=== PATIENT | female | born 1940 | race Asian ===

== ENCOUNTER 2019-01-05 02:07 | Inpatient (IN) | payer MEDICARE, BC, MEDICAID ==
[~2019-01-05] VITALS: Ht 149.9 cm; Wt 60.0 kg
[2019-01-05 04:40] LABS: CLARITY,URINE SLIGHTLY CLOUDY (Clear); COLOR,URINE YELLOW (Yellow); GLUCOSE, URINE NEGATIVE (Neg); KETONES,URINE NEGATIVE (Neg); LEUKOCYTE ESTERASE ,URINE MODERATE (Neg); NITRITES, URINE NEGATIVE (Neg); OCCULT BLOOD,URINE NEGATIVE (Neg); PH,URINE 6.5 (4.8-8.0); PROTEIN,URINE NEGATIVE (Neg); UROBILINOGEN,URINE 0.2 E.U/dL (0.2-1.0)
[2019-01-05 04:41] LABS: UA COLLECTION TYPE CLN CATCH MIDSTREAM
[2019-01-05 04:58] LABS: BACTERIA,URINE FEW /HPF (Neg); RBC,URINE 0-2 /HPF (0-2); WBC,URINE 0-4 /HPF (0-4)
[2019-01-05 04:59] LABS: MUCUS STRANDS NONE SEEN /LPF (Neg); SQUAMOUS EPITHELIAL CELL,UR FEW /LPF (FEW)
[2019-01-05] MEDS ORDERED: iohexol 300mg/ml 100ml inj. ONE (05:27)
[2019-01-05 05:30] LABS: PARTIAL THROMBOPLASTIN TIME 27 SECONDS (22-32)
[2019-01-05 05:33] LABS: ALANINE AMINOTRANSFERASE 30 U/L (12-78); ALBUMIN 4.1 G/DL (3.4-5.0); ALBUMIN/GLOBULIN RATIO 1.1 (1.1-1.5); ALKALINE PHOSPHATASE 82 IU/L (46-116); ANION GAP 15 (8-16); ASPARTATE AMINO TRANSFERASE 26 U/L (10-37); BILIRUBIN,TOTAL 0.6 MG/DL (0.1-1.0); BLOOD UREA NITROGEN 20 MG/DL (7-18); BUN/CREATININE RATIO 24.4 (6.6-38.0); CALCIUM 8.9 MG/DL (8.5-10.1); CHLORIDE 105 MMOL/L (99-107); CREATININE 0.82 MG/DL (0.40-0.90); GLUCOSE 94 MG/DL (70-104); SODIUM 140 MMOL/L (135-145); TOTAL CARBON DIOXIDE 20.3 MMOL/L (24-32); TOTAL PROTEIN 7.8 G/DL (6.4-8.2); eGFR 67 ML/MIN
[2019-01-05 05:39] LABS: POTASSIUM 2.9 MMOL/L (3.5-5.1)
[2019-01-05] MEDS ORDERED: magnesium 2GM in 50ml NS 50 ML IV ONE (05:40)
[2019-01-05] MEDS ORDERED: potassium 10mEq/100ml NS w/LIDOcaine (10mg/bag) IV ONE ×2 (05:40→07:35)
[2019-01-05 05:42] LABS: BASOPHILS % (AUTO) 0.9 % (0-1); EOSINOPHILS # (AUTO) 0.1 X10'3 (0-0.9); EOSINOPHILS % (AUTO) 2.2 % (0-6); HEMATOCRIT 39.6 % (35.0-45.0); HEMOGLOBIN 13.6 g/dl (12.0-16.0); LYMPHOCYTES # (AUTO) 1.5 X10'3 (1.1-4.8); LYMPHOCYTES % (AUTO) 28.5 % (21-51); MEAN CORPUSCULAR HEMOGLOBIN 32.8 PG (27.0-31.0); MEAN CORPUSCULAR HGB CONC 34.2 g/dL (33.0-36.5); MEAN CORPUSCULAR VOLUME 95.8 FL (78-98); MEAN PLATELET VOLUME 9.2 FL (7.4-10.4); MONOCYTES # (AUTO) 0.4 X10'3 (0-0.9); MONOCYTES % (AUTO) 7.7 % (2-12); NEUTROPHILS # (AUTO) 3.2 X10'3 (1.8-7.7); NEUTROPHILS % (AUTO) 60.7 % (42-75); PLATELET COUNT 151 X10'3 (140-440); RED BLOOD COUNT 4.13 X10'6 (4.20-5.60); WHITE BLOOD COUNT 5.3 X10'3 (4.5-11.0)
[2019-01-05] MEDS ORDERED: potassium Cl 10 mEq/100mL bag IV ONE ×2 (05:45→07:40)
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
[2019-01-05] MEDS ORDERED: CefTRIAXone 2gm/D5W 50ml 50 ML IV ONE (06:30)
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
--- NOTE | 2019-01-05 07:20 | NUR ---
Daughter Roxanna's phone number [phone]
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
--- NOTE | 2019-01-05 07:46 | NUR ---
Patient admitted to [facility] last week. Attempting to get records.
--- NOTE | 2019-01-05 08:01 | NUR ---
DR MARVIN WITH PT AND PT'S SISTER AT BEDSIDE
[2019-01-05] MEDS ORDERED: acetaminophen 325mg tablet PO PRN (08:10)
[2019-01-05] MEDS ORDERED: magnesium 4gm in 100ml NS 100 ML IV PRN (08:10)
[2019-01-05] MEDS ORDERED: magnesium 2GM in 50ml NS 50 ML IV PRN (08:10)
[2019-01-05] MEDS ORDERED: potassium CL 10mEq/100ml bag 100 ML IV PRN ×2 (08:10)
[2019-01-05] MEDS ORDERED: magnesium hydroxide 30ml (MOM) UD suspension PO PRN (08:10)
[2019-01-05] MEDS ORDERED: ondansetron/PF 4mg/2ml inj IV PRN (08:10)
[2019-01-05] MEDS ORDERED: mag hydrox/Alum hydrox/simeth 30ml oral suspension PO PRN (08:10)
[2019-01-05] MEDS ORDERED: morphine 2 MG/ML inj. syringe IV PRN (08:10)
[2019-01-05] MEDS ORDERED: potassium Cl 20 mEq SR tablet PO PRN (08:10)
[2019-01-05] MEDS ORDERED: magnesium Cl slow-release 64mg tablet PO PRN (08:10)
[2019-01-05] MEDS ORDERED: LORazepam 2 mg/ml vial IV PRN (08:15)
[2019-01-05] MEDS ORDERED: LORazepam 0.5 MG tablet PO PRN (08:15)
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
[2019-01-05] MEDS: normal saline 1000ml 1,000 ML IV SCH ×2 (12:22→20:48)
[2019-01-05] MEDS: CefTRIAXone 2gm/D5W 50ml 50 ML IV SCH (12:35)
[2019-01-05] MEDS: cloNIDine 0.1 mg tablet PO SCH ×2 (12:59→20:48)
[2019-01-05] MEDS: HYDROcodone/acetaminophen 5mg/325mg tablet PO PRN (13:05)
[2019-01-05] MEDS ORDERED: NO HOME MEDS (13:28)
--- NOTE | 2019-01-05 13:33 | NUR ---
Pt assisted to bathroom with IV pole.
--- NOTE | 2019-01-05 15:33 | NUR ---
Pt is to be transferred to a medical floor at some point.
[2019-01-05 15:34] LABS: POTASSIUM 3.4 MMOL/L (3.5-5.1); TROPONIN I < 0.04 NG/ML (0.0-0.05)
--- NOTE | 2019-01-05 16:50 | NUR ---
Pt accidently dislodged her IV.
[2019-01-05] MEDS: potassium Cl 20 mEq SR tablet PO PRN ×2 (17:45→21:38)
--- NOTE | 2019-01-05 18:10 | NUR ---
Started new IV Right AC 22 gauge, IV fluids restarted.
--- NOTE | 2019-01-05 18:11 | NUR ---
Daughter Roxanna phone number [phone]
--- NOTE | 2019-01-05 18:28 | NUR ---
Pt has order for a sitter, charge nurse notified. Plan is for pt to be transferred to a medical floor this evening possibly ortho.
[2019-01-05 19:15] VITALS: BP 167/80
[2019-01-05] MEDS: heparin, porcine 5000 units/ml vial SQ SCH (20:00)
[2019-01-05 22:00] VITALS: BP 119/63
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
[2019-01-06] MEDS ORDERED: LORazepam 2 mg/ml vial IV PRN (01:25)
[2019-01-06] MEDS ORDERED: haloperidol lactate 5mg/ml inj IM PRN (01:25)
--- NOTE | 2019-01-06 02:26 | NUR ---
AT APPROX 0045, PATIENT ATTEMPTED TO LEAVE THE FLOOR AND REFUSED USE OF PIPE AND TANK FABRICATOR VIA PHONE TO AID WITH COMMUNICATING WITH PATIENT. BECAME VERY COMBATIVE, HITTING AND KICKING AT STAFF. OBTAINED ORDERED TO PLACE PATIENT INTO SOFT RESTRAINTS AND CHANGED ATIVAN ORDER TO .5MG Q4HRS AND ACQUIRED AN ORDER FOR HALDOL .5MG IF ATIVAN NOT EFFECTIVE. PATIENT CONTINUES TO BE MONITORED FREQUENTLY AND SITTER REMAINS AT THE BEDSIDE. Addendum: 01/06/19 at 0228 by Berta Reynolds RN Amended: Links added.
[2019-01-06 06:00] VITALS: BP 133/77
--- NOTE | 2019-01-06 06:00 | NUR ---
Patient in room ORTHO 4009. I have received report from Berta GAINES and had the opportunity to ask questions and assume patient care.
[2019-01-06 06:31] LABS: BASOPHILS % (AUTO) 1.3 % (0-1); EOSINOPHILS # (AUTO) 0.2 X10'3 (0-0.9); HEMATOCRIT 36.2 % (35.0-45.0); HEMOGLOBIN 12.5 g/dl (12.0-16.0); LYMPHOCYTES # (AUTO) 1.2 X10'3 (1.1-4.8); LYMPHOCYTES % (AUTO) 41.6 % (21-51); MEAN CORPUSCULAR HGB CONC 34.4 g/dL (33.0-36.5); MEAN PLATELET VOLUME 8.8 FL (7.4-10.4); MONOCYTES # (AUTO) 0.3 X10'3 (0-0.9); MONOCYTES % (AUTO) 10.4 % (2-12); NEUTROPHILS # (AUTO) 1.2 X10'3 (1.8-7.7); NEUTROPHILS % (AUTO) 40.7 % (42-75); PLATELET COUNT 145 X10'3 (140-440); RED BLOOD COUNT 3.77 X10'6 (4.20-5.60); RED CELL DISTRIBUTION WIDTH 14.5 % (11.5-14.5); WHITE BLOOD COUNT 2.9 X10'3 (4.5-11.0)
[2019-01-06 06:39] LABS: ALANINE AMINOTRANSFERASE 23 U/L (12-78); ALBUMIN 3.5 G/DL (3.4-5.0); ALKALINE PHOSPHATASE 62 IU/L (46-116); ANION GAP 9 (8-16); ASPARTATE AMINO TRANSFERASE 21 U/L (10-37); BILIRUBIN,TOTAL 0.6 MG/DL (0.1-1.0); BLOOD UREA NITROGEN 8 MG/DL (7-18); BUN/CREATININE RATIO 11.6 (6.6-38.0); CALCIUM 9.1 MG/DL (8.5-10.1); CHLORIDE 109 MMOL/L (99-107); CREATININE 0.69 MG/DL (0.40-0.90); GLUCOSE 97 MG/DL (70-104); MAGNESIUM 2.2 MG/DL (1.5-2.4); POTASSIUM 3.8 MMOL/L (3.5-5.1); SODIUM 141 MMOL/L (135-145); TOTAL CARBON DIOXIDE 22.8 MMOL/L (24-32); TOTAL PROTEIN 6.9 G/DL (6.4-8.2); eGFR 82 ML/MIN
--- NOTE | 2019-01-06 06:52 | NUR ---
Problems reprioritized. Patient report given, questions answered & plan of care reviewed with JAMES GAINES.
[2019-01-06 07:40] LABS: TOTAL CELLS COUNTED 100
[2019-01-06 07:41] LABS: PLATELET ESTIMATE NORMAL
[2019-01-06] MEDS: K and/or MAG REPLACEMENT MC SCH (08:00)
[2019-01-06] MEDS: CefTRIAXone 2gm/D5W 50ml 50 ML IV SCH (08:15)
[2019-01-06] MEDS: cloNIDine 0.1 mg tablet PO SCH ×2 (08:21→13:00)
[2019-01-06] MEDS: heparin, porcine 5000 units/ml vial SQ SCH ×2 (08:22→19:36)
[2019-01-06] MEDS: normal saline 1000ml 1,000 ML IV SCH (08:26)
[2019-01-06] MEDS: acetaminophen 325mg tablet PO PRN (08:35)
[2019-01-06 10:00] VITALS: BP 108/60
[2019-01-06 17:00] VITALS: BP 145/64
[2019-01-06] MEDS ORDERED: hydrALAZINE 25 MG tablet PO PRN (18:10)
--- NOTE | 2019-01-06 18:31 | NUR ---
Problems reprioritized. Patient report given, questions answered & plan of care reviewed with Francia GAINES.
[2019-01-06] MEDS: temazepam 15mg capsule PO PRN (21:50)
[2019-01-06 22:00] VITALS: BP 136/76
[2019-01-07] MEDS: LORazepam 0.5 MG tablet PO PRN ×3 (05:43→18:19)
[2019-01-07 06:03] LABS: BASOPHILS % (AUTO) 1.1 % (0-1); EOSINOPHILS # (AUTO) 0.1 X10'3 (0-0.9); EOSINOPHILS % (AUTO) 4.9 % (0-6); HEMATOCRIT 37.8 % (35.0-45.0); HEMOGLOBIN 12.9 g/dl (12.0-16.0); LYMPHOCYTES # (AUTO) 1.6 X10'3 (1.1-4.8); LYMPHOCYTES % (AUTO) 52.6 % (21-51); MEAN CORPUSCULAR HEMOGLOBIN 32.6 PG (27.0-31.0); MEAN CORPUSCULAR HGB CONC 34.1 g/dL (33.0-36.5); MEAN CORPUSCULAR VOLUME 95.8 FL (78-98); MEAN PLATELET VOLUME 9.2 FL (7.4-10.4); MONOCYTES # (AUTO) 0.3 X10'3 (0-0.9); MONOCYTES % (AUTO) 9.4 % (2-12); PLATELET COUNT 148 X10'3 (140-440); RED BLOOD COUNT 3.95 X10'6 (4.20-5.60); RED CELL DISTRIBUTION WIDTH 14.4 % (11.5-14.5)
[2019-01-07 06:34] LABS: ALANINE AMINOTRANSFERASE 21 U/L (12-78); ALBUMIN 3.4 G/DL (3.4-5.0); ALKALINE PHOSPHATASE 62 IU/L (46-116); ANION GAP 12 (8-16); ASPARTATE AMINO TRANSFERASE 20 U/L (10-37); BILIRUBIN,TOTAL 0.5 MG/DL (0.1-1.0); BLOOD UREA NITROGEN 8 MG/DL (7-18); BUN/CREATININE RATIO 12.1 (6.6-38.0); CALCIUM 8.9 MG/DL (8.5-10.1); CHLORIDE 108 MMOL/L (99-107); CREATININE 0.66 MG/DL (0.40-0.90); GLUCOSE 81 MG/DL (70-104); MAGNESIUM 2.1 MG/DL (1.5-2.4); POTASSIUM 3.5 MMOL/L (3.5-5.1); SODIUM 143 MMOL/L (135-145); TOTAL CARBON DIOXIDE 23.3 MMOL/L (24-32); TOTAL PROTEIN 6.8 G/DL (6.4-8.2); eGFR 87 ML/MIN
[2019-01-07 06:47] LABS: TOTAL CELLS COUNTED 100
--- NOTE | 2019-01-07 06:50 | NUR ---
Patient report given, questions answered & plan of care reviewed with Danuta GAINES.
[2019-01-07 06:53] LABS: PLATELET ESTIMATE NORMAL
--- NOTE | 2019-01-07 06:59 | NUR ---
Patient in room ORTHO 4009. I have received report from ARYAN GAINES and had the opportunity to ask questions and assume patient care.
[2019-01-07 07:00] VITALS: BP 155/83
[2019-01-07] MEDS: K and/or MAG REPLACEMENT MC SCH (08:00)
[2019-01-07] MEDS: heparin, porcine 5000 units/ml vial SQ SCH ×2 (08:00→19:03)
[2019-01-07] MEDS: cefpodoxime proxetil 100mg tablet PO SCH ×2 (14:00→17:30)
[2019-01-07] MEDS ORDERED: quetiapine 100mg tablet PO PRN (15:20)
--- NOTE | 2019-01-07 18:11 | NUR ---
patient very restless during shift, medicated x2 with Ativan PO. order given for patient to keep IV out. Commenced on PO ABX . Daughter visited, spoke with SS, with regards plan for patients DC. patient needing sitter for shift. Seen today by Dr Seth.Report given to Francia GAINES
[2019-01-07] MEDS: temazepam 15mg capsule PO PRN (20:35)
[2019-01-07 22:00] VITALS: BP 132/81
[2019-01-08] MEDS: LORazepam 0.5 MG tablet PO PRN (05:53)
[2019-01-08 06:00] VITALS: BP 193/86
[2019-01-08 06:01] LABS: BASOPHILS % (AUTO) 1.3 % (0-1); EOSINOPHILS # (AUTO) 0.1 X10'3 (0-0.9); EOSINOPHILS % (AUTO) 4.4 % (0-6); HEMATOCRIT 40.6 % (35.0-45.0); HEMOGLOBIN 13.7 g/dl (12.0-16.0); LYMPHOCYTES # (AUTO) 1.2 X10'3 (1.1-4.8); LYMPHOCYTES % (AUTO) 48.4 % (21-51); MEAN CORPUSCULAR HEMOGLOBIN 32.5 PG (27.0-31.0); MEAN CORPUSCULAR HGB CONC 33.7 g/dL (33.0-36.5); MEAN CORPUSCULAR VOLUME 96.6 FL (78-98); MEAN PLATELET VOLUME 9.1 FL (7.4-10.4); MONOCYTES # (AUTO) 0.3 X10'3 (0-0.9); MONOCYTES % (AUTO) 12.1 % (2-12); NEUTROPHILS # (AUTO) 0.9 X10'3 (1.8-7.7); NEUTROPHILS % (AUTO) 33.8 % (42-75); PLATELET COUNT 143 X10'3 (140-440); RED CELL DISTRIBUTION WIDTH 14.3 % (11.5-14.5); WHITE BLOOD COUNT 2.6 X10'3 (4.5-11.0)
[2019-01-08 06:24] LABS: ALANINE AMINOTRANSFERASE 20 U/L (12-78); ALBUMIN 3.8 G/DL (3.4-5.0); ALKALINE PHOSPHATASE 68 IU/L (46-116); ANION GAP 13 (8-16); ASPARTATE AMINO TRANSFERASE 24 U/L (10-37); BILIRUBIN,TOTAL 0.5 MG/DL (0.1-1.0); BLOOD UREA NITROGEN 11 MG/DL (7-18); BUN/CREATININE RATIO 14.9 (6.6-38.0); CALCIUM 9.3 MG/DL (8.5-10.1); CHLORIDE 108 MMOL/L (99-107); CREATININE 0.74 MG/DL (0.40-0.90); GLUCOSE 81 MG/DL (70-104); MAGNESIUM 2.2 MG/DL (1.5-2.4); POTASSIUM 3.6 MMOL/L (3.5-5.1); SODIUM 142 MMOL/L (135-145); TOTAL CARBON DIOXIDE 20.9 MMOL/L (24-32); TOTAL PROTEIN 7.5 G/DL (6.4-8.2); eGFR 76 ML/MIN
--- NOTE | 2019-01-08 06:40 | NUR ---
Patient report given, questions answered & plan of care reviewed with Cassie GAINES.
[2019-01-08 06:45] LABS: PLATELET ESTIMATE NORMAL; TOTAL CELLS COUNTED 100
[2019-01-08] MEDS: K and/or MAG REPLACEMENT MC SCH (08:00)
[2019-01-08] MEDS: heparin, porcine 5000 units/ml vial SQ SCH ×2 (08:00→19:17)
[2019-01-08] MEDS: cefpodoxime proxetil 100mg tablet PO SCH ×2 (08:30→16:36)
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
--- NOTE | 2019-01-08 09:45 | NUR ---
Report to Tracy GAINES
--- NOTE | 2019-01-08 16:54 | NUR ---
PAGER ID: [phone] MESSAGE: Jesus Estrada9Marilu Drake. Can I put an order for a caution tray in? Tracy [phone]
--- NOTE | 2019-01-08 17:52 | NUR ---
Patient still refusing all care. At one point the patient was hitting the window and yelling, sitter calmed the patient down. Patient is still refusing all care and medications. Spoke with Dr. Seth and he would like staf to try and have the patient's daughter assist with getting the patient to take medication., Also the patient will be on a caution tray from now on.
--- NOTE | 2019-01-08 18:06 | NUR ---
Problems reprioritized. Patient report given, questions answered & plan of care reviewed with Francia GAINES. Patient stable at transfer of care.
[2019-01-08] MEDS ORDERED: OLANZapine 2.5MG tablet PO SCH (20:00)
--- NOTE | 2019-01-08 20:24 | NUR ---
pt c/o heart burn, requested maalox. given w/o difficulty - pt requested new medication for sleep be given later.
[2019-01-08 22:00] VITALS: BP 111/41
[2019-01-08] MEDS: mirtazapine 15mg tablet PO SCH (22:13)
--- NOTE | 2019-01-08 22:13 | NUR ---
Pt received full tablet (15 mg) of Remeron instead of ordered 7.[address] Altamirano notified, no further orders. Will continue to monitor.
[2019-01-09 05:00] VITALS: BP 166/90
[2019-01-09 05:40] LABS: HEMATOCRIT 39.2 % (35.0-45.0); LYMPHOCYTES # (AUTO) 1.6 X10'3 (1.1-4.8); MEAN PLATELET VOLUME 8.8 FL (7.4-10.4); MONOCYTES # (AUTO) 0.4 X10'3 (0-0.9); NEUTROPHILS # (AUTO) 0.9 X10'3 (1.8-7.7); RED CELL DISTRIBUTION WIDTH 14.1 % (11.5-14.5); WHITE BLOOD COUNT 3.1 X10'3 (4.5-11.0)
[2019-01-09 05:43] LABS: BASOPHILS % (AUTO) 0.9 % (0-1); EOSINOPHILS # (AUTO) 0.2 X10'3 (0-0.9); EOSINOPHILS % (AUTO) 4.9 % (0-6); HEMOGLOBIN 13.5 g/dl (12.0-16.0); LYMPHOCYTES % (AUTO) 52.1 % (21-51); MEAN CORPUSCULAR HGB CONC 34.5 g/dL (33.0-36.5); MEAN CORPUSCULAR VOLUME 95.9 FL (78-98); MONOCYTES % (AUTO) 12.8 % (2-12); NEUTROPHILS % (AUTO) 29.3 % (42-75); PLATELET COUNT 156 X10'3 (140-440); RED BLOOD COUNT 4.09 X10'6 (4.20-5.60)
--- NOTE | 2019-01-09 06:38 | NUR ---
Problems reprioritized. Patient report given, questions answered & plan of care reviewed with Art RN.
[2019-01-09] MEDS: cefpodoxime proxetil 100mg tablet PO SCH ×2 (07:22→17:20)
[2019-01-09] MEDS: heparin, porcine 5000 units/ml vial SQ SCH ×2 (07:25→20:11)
[2019-01-09] MEDS: K and/or MAG REPLACEMENT MC SCH (08:00)
[2019-01-09 10:00] VITALS: BP 125/71
[2019-01-09] MEDS: OLANZapine 5mg rapidly disint. tablet PO PRN (17:20)
--- NOTE | 2019-01-09 17:28 | NUR ---
After scanning pt meds, pt voiced that she didn't want to take them at this time. I will hold them until shift change and see if she will take them.
--- NOTE | 2019-01-09 17:33 | NUR ---
Pt took her meds
[2019-01-09 18:00] VITALS: BP 95/62
[2019-01-09] MEDS: mirtazapine 15mg tablet PO SCH (20:08)
[2019-01-09 21:56] VITALS: BP 105/74
[2019-01-10 06:00] VITALS: BP 148/99
[2019-01-10 06:01] LABS: BASOPHILS % (AUTO) 1.4 % (0-1); EOSINOPHILS # (AUTO) 0.2 X10'3 (0-0.9); EOSINOPHILS % (AUTO) 7.6 % (0-6); HEMATOCRIT 41.3 % (35.0-45.0); HEMOGLOBIN 13.8 g/dl (12.0-16.0); LYMPHOCYTES # (AUTO) 1.5 X10'3 (1.1-4.8); LYMPHOCYTES % (AUTO) 49.3 % (21-51); MEAN CORPUSCULAR HEMOGLOBIN 32.5 PG (27.0-31.0); MEAN CORPUSCULAR HGB CONC 33.5 g/dL (33.0-36.5); MEAN CORPUSCULAR VOLUME 97.1 FL (78-98); MEAN PLATELET VOLUME 8.4 FL (7.4-10.4); MONOCYTES # (AUTO) 0.3 X10'3 (0-0.9); MONOCYTES % (AUTO) 11.3 % (2-12); NEUTROPHILS # (AUTO) 0.9 X10'3 (1.8-7.7); NEUTROPHILS % (AUTO) 30.4 % (42-75); PLATELET COUNT 165 X10'3 (140-440); RED BLOOD COUNT 4.25 X10'6 (4.20-5.60); RED CELL DISTRIBUTION WIDTH 14.4 % (11.5-14.5)
--- NOTE | 2019-01-10 06:05 | NUR ---
Patient in room ORTHO 4009. I have received report from Patricia GAINES and had the opportunity to ask questions and assume patient care.
--- NOTE | 2019-01-10 06:39 | NUR ---
Problems reprioritized. Patient report given, questions answered & plan of care reviewed with jeffery Choe.
[2019-01-10 07:54] LABS: PLATELET ESTIMATE NORMAL; TOTAL CELLS COUNTED 100
[2019-01-10] MEDS: heparin, porcine 5000 units/ml vial SQ SCH ×2 (08:00→19:48)
[2019-01-10] MEDS: K and/or MAG REPLACEMENT MC SCH (08:00)
[2019-01-10] MEDS: cefpodoxime proxetil 100mg tablet PO SCH ×2 (08:22→17:47)
[2019-01-10] MEDS: acetaminophen 325mg tablet PO PRN (08:37)
[2019-01-10 10:00] VITALS: BP 98/52
--- NOTE | 2019-01-10 10:27 | NUR ---
Initial: Pt admit w/ acute UTI hx moderate dementia pulled IV and not safe for new IV per MD note. AOx2 w/ sitter. PO fluctuates since admit 0-25% avg meals but improved to 100% yesterday dinner w/ remeron started last night. No BM yet this admit. On lactose free diet though no allergies indicated at this time. Will continue to monitor for ONS needs if PO continues to decline. Rec: 1. advance to regular diet per MD 2. encourage PO w/ sitter given dementia 3. monitor for ONS needs if PO trends low again following remeron 4. weekly wts Addendum: 01/10/19 at [address] Amended: Links added.
[2019-01-10] MEDS: OLANZapine 5mg rapidly disint. tablet PO PRN (12:51)
[2019-01-10 18:00] VITALS: BP 132/78
--- NOTE | 2019-01-10 18:20 | NUR ---
Patient in room ORTHO 4009. I have received report from LIANA Choe and had the opportunity to ask questions and assume patient care.
--- NOTE | 2019-01-10 18:27 | NUR ---
Problems reprioritized. Patient report given, questions answered & plan of care reviewed with Mari GAINES.
[2019-01-10] MEDS: LORazepam 0.5 MG tablet PO PRN (19:45)
[2019-01-10] MEDS: mirtazapine 15mg tablet PO SCH (21:24)
[2019-01-10 22:00] VITALS: BP 131/80
[2019-01-11 06:00] VITALS: BP 134/89
--- NOTE | 2019-01-11 06:10 | NUR ---
Patient in room ORTHO 4009. I have received report from Mari GAINES and had the opportunity to ask questions and assume patient care.
--- NOTE | 2019-01-11 06:39 | NUR ---
Problems reprioritized. Patient report given, questions answered & plan of care reviewed with LIANA Molina. Addendum: 01/11/19 at 0640 by Mari Nunez RN Problems reprioritized. Patient report given, questions answered & plan of care reviewed with LIANA Choe.
[2019-01-11] MEDS: K and/or MAG REPLACEMENT MC SCH (08:00)
[2019-01-11] MEDS: cefpodoxime proxetil 100mg tablet PO SCH ×2 (09:55→17:59)
[2019-01-11] MEDS: heparin, porcine 5000 units/ml vial SQ SCH ×2 (09:56→19:39)
--- NOTE | 2019-01-11 10:38 | NUR ---
PAGER ID: [phone] MESSAGE: Obie Ochoa, admin is requesting discharge orders for Ms. Michel in [address] if you deem her medically cleared. Please advise Thank you Daija
[2019-01-11] MEDS ORDERED: MIRT15TA8 PO (11:24)
[2019-01-11] MEDS ORDERED: CEFP100T7 PO (11:24)
--- NOTE | 2019-01-11 11:28 | NUR ---
Discharge order in, pending communication with family for discharge arrangements.
[2019-01-11] MEDS ORDERED: OLAN2.5T3 PO (11:29)
--- NOTE | 2019-01-11 14:01 | NUR ---
Per CM, pt's daughter will be coming in in approximately one-two hours to sign discharge forms.
--- NOTE | 2019-01-11 16:48 | NUR ---
Pt's daughter arrived, does not wish to take pt home with her. Reviewed pt's care for the day, behaviors, discharge instructions and medications. Pt's daughter opted to appeal discharge. Medicare appeal form was reviewed by pt's daughter who advised she would call the [facility]. Pt's daughter brought pt food and spent time visiting with pt.
[2019-01-11 18:00] VITALS: BP 141/76
--- NOTE | 2019-01-11 18:10 | NUR ---
Patient in room ORTHO 4009. I have received report from LIANA Choe and had the opportunity to ask questions and assume patient care.
--- NOTE | 2019-01-11 18:31 | NUR ---
Problems reprioritized. Patient report given, questions answered & plan of care reviewed with Mari GAINES.
[2019-01-11] MEDS: LORazepam 0.5 MG tablet PO PRN (19:38)
[2019-01-11] MEDS: mirtazapine 15mg tablet PO SCH (21:17)
[2019-01-11] MEDS: HYDROcodone/acetaminophen 5mg/325mg tablet PO PRN (21:21)
[2019-01-11 22:00] VITALS: BP 109/71
[2019-01-12] MEDS: HYDROcodone/acetaminophen 5mg/325mg tablet PO PRN (05:17)
[2019-01-12 06:00] VITALS: BP 132/85
--- NOTE | 2019-01-12 06:14 | NUR ---
Problems reprioritized. Patient report given, questions answered & plan of care reviewed with LIANA Choe.
--- NOTE | 2019-01-12 06:15 | NUR ---
Patient in room ORTHO 4009. I have received report from Mari GAINES and had the opportunity to ask questions and assume patient care.
[2019-01-12] MEDS: K and/or MAG REPLACEMENT MC SCH (08:00)
[2019-01-12] MEDS: heparin, porcine 5000 units/ml vial SQ SCH ×2 (08:57→20:17)
[2019-01-12] MEDS: cefpodoxime proxetil 100mg tablet PO SCH ×2 (08:58→17:59)
[2019-01-12 10:00] VITALS: BP 133/73
[2019-01-12 18:00] VITALS: BP 113/68
--- NOTE | 2019-01-12 18:28 | NUR ---
Problems reprioritized. Patient report given, questions answered & plan of care reviewed with Alejandra GAINES.
--- NOTE | 2019-01-12 18:37 | NUR ---
Patient in room ORTHO 4009. I have received report from LIANA Choe and had the opportunity to ask questions and assume patient care. Addendum: 01/12/19 at 1838 by Ayala Stevens RN Amended: Links added.
[2019-01-12] MEDS: mirtazapine 15mg tablet PO SCH (20:17)
[2019-01-12 22:00] VITALS: BP 158/88
[2019-01-12] MEDS: LORazepam 0.5 MG tablet PO PRN (22:01)
[2019-01-12] MEDS: OLANZapine **IM** 10 mg inj. IM PRN (23:02)
--- NOTE | 2019-01-12 23:08 | NUR ---
patient stated to become agitated and yelling outside her bedroom, patient speaking in macedonian language only. security called in, patient was given IM zyprexa, administered by another RN. patient calmed down at this time and in no acute distress.
--- NOTE | 2019-01-13 06:41 | NUR ---
Problems reprioritized. Patient report given, questions answered & plan of care reviewed with LIANA Diamond. Addendum: 01/13/19 at 0642 by Ayala Stevens RN Amended: Links added.
[2019-01-13] MEDS: K and/or MAG REPLACEMENT MC SCH (08:00)
[2019-01-13] MEDS: cefpodoxime proxetil 100mg tablet PO SCH (08:18)
[2019-01-13] MEDS: heparin, porcine 5000 units/ml vial SQ SCH ×2 (08:19→20:41)
[2019-01-13 09:57] VITALS: BP 124/68
--- NOTE | 2019-01-13 11:26 | NUR ---
reassessment: Pt AOx2 PO 0-25% avg meals but daughter bringing in rice and other foods pt will eat from home given cultural preferences. No BM documented this admit 8 days; per RN pt is able to use bathroom by herself so unsure if true constipation. LEON d/w RN regarding advancement to regular diet and routine bowel care per MD approval given no lactose allergy hx and possible constipation. Continue lactose free diet if cultural preference. Will continue to monitor. Rec: 1. advance to regular diet per MD; continue lactose free if cultural preferences 2. encourage PO w/ sitter given dementia 3. food from home by daughter for cultural preferences 4. routine bowel care 5. weekly wts Addendum: 01/13/19 at [address] Amended: Links added.
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
[2019-01-13] MEDS: LORazepam 0.5 MG tablet PO PRN ×2 (16:35→20:40)
[2019-01-13 18:00] VITALS: BP 103/60
--- NOTE | 2019-01-13 18:43 | NUR ---
Problems reprioritized. Patient report given, questions answered & plan of care reviewed with Angelica RN.
--- NOTE | 2019-01-13 19:00 | NUR ---
daughter, Roxanna here; states pt reports to her that ativan given earlier, has made the pain under her breasts/ ribs go away Addendum: 01/13/19 at 2251 by Xenia Alcaraz RN Amended: Links added.
[2019-01-13] MEDS: mirtazapine 15mg tablet PO SCH (20:40)
[2019-01-13 22:00] VITALS: BP 112/72
[2019-01-14] MEDS: LORazepam 0.5 MG tablet PO PRN ×2 (00:46→20:32)
--- NOTE | 2019-01-14 06:27 | NUR ---
Patient in room ORTHO 4008. I have received report from Angelica RN and had the opportunity to ask questions and assume patient care.
[2019-01-14] MEDS: K and/or MAG REPLACEMENT MC SCH (08:00)
--- NOTE | 2019-01-14 10:00 | NUR ---
Patient is refusing vital signs at this time.
[2019-01-14] MEDS: OLANZapine **IM** 10 mg inj. IM PRN (13:08)
--- NOTE | 2019-01-14 18:00 | NUR ---
Problems reprioritized. Patient report given, questions answered & plan of care reviewed with Marybeth GAINES.
--- NOTE | 2019-01-14 18:56 | NUR ---
Patient in room ORTHO 4008. I have received report from Delilah GAINES and had the opportunity to ask questions and assume patient care.
[2019-01-14] MEDS: mirtazapine 15mg tablet PO SCH (20:33)
--- NOTE | 2019-01-15 06:21 | NUR ---
Problems reprioritized. Patient report given, questions answered & plan of care reviewed with Felicita GAINES.
--- NOTE | 2019-01-15 06:45 | NUR ---
Received report from Marybeth GAINES
[2019-01-15] MEDS: LORazepam 0.5 MG tablet PO PRN (06:52)
[2019-01-15] MEDS: K and/or MAG REPLACEMENT MC SCH (08:00)
[2019-01-15 10:00] VITALS: BP 127/77
[2019-01-15] MEDS: OLANZapine **IM** 10 mg inj. IM PRN (13:37)
[2019-01-15] MEDS ORDERED: IBUP-1984 PO (16:52)
[2019-01-15] MEDS ORDERED: OLAN2.5T28 PO (16:52)
[2019-01-15] MEDS ORDERED: MIRT15TA8 PO (16:52)
[2019-01-15 18:00] VITALS: BP 119/75
--- NOTE | 2019-01-15 18:22 | NUR ---
Patient in room ORTHO 4008. I have received report from Felicita GAINES and had the opportunity to ask questions and assume patient care.
[2019-01-15] MEDS: OLANZapine 2.5MG tablet PO SCH ×2 (20:00→20:45)
[2019-01-15] MEDS: mirtazapine 15mg tablet PO SCH (20:37)
[2019-01-15] MEDS: ibuprofen tablet 400 MG TABLET PO PRN (20:39)
[2019-01-15] MEDS ORDERED: mirtazapine 15mg tablet PO SCH (21:00)
[2019-01-15 22:00] VITALS: BP 120/80
--- NOTE | 2019-01-16 06:32 | NUR ---
Problems reprioritized. Patient report given, questions answered & plan of care reviewed with Felicita GAINES.
[2019-01-16 06:43] VITALS: BP 102/60
[2019-01-16 06:54] VITALS: BP 128/69
[2019-01-16] MEDS: OLANZapine 2.5MG tablet PO SCH ×2 (07:42→20:04)
[2019-01-16] MEDS: K and/or MAG REPLACEMENT MC SCH (08:00)
--- NOTE | 2019-01-16 11:51 | NUR ---
reassessment: Pt had large BM per EMR. PO improved to 75-100% meals s/p BM meeting needs. WBC 3.0 not on probiotic. Will continue to monitor. Rec: 1. advance to regular diet per MD; continue lactose free if cultural preferences 2. encourage PO w/ sitter given dementia 3. food from home by daughter for cultural preferences 4. routine bowel care 5. weekly wts Addendum: 01/16/19 at [address] Amended: Links added.
[2019-01-16 18:00] VITALS: BP 117/67
[2019-01-16] MEDS: mirtazapine 15mg tablet PO SCH (20:03)
[2019-01-16 22:00] VITALS: BP 139/67
[2019-01-16] MEDS: LORazepam 0.5 MG tablet PO PRN (22:21)
--- NOTE | 2019-01-16 22:22 | NUR ---
Patient coloring tonight. Feeling anxious and states she wants pill to help her. Patient opening the window blinds and moving things around in her room.
[2019-01-17 06:00] VITALS: BP 105/68
--- NOTE | 2019-01-17 06:00 | NUR ---
Patient in room ORTHO 4008. I have received report from ALEX GAINES and had the opportunity to ask questions and assume patient care.
--- NOTE | 2019-01-17 06:12 | NUR ---
Problems reprioritized. Patient report given, questions answered & plan of care reviewed with Martir GAINES.
[2019-01-17] MEDS: K and/or MAG REPLACEMENT MC SCH (08:00)
[2019-01-17] MEDS: ibuprofen tablet 400 MG TABLET PO PRN (08:16)
[2019-01-17] MEDS: OLANZapine 2.5MG tablet PO SCH ×2 (08:16→20:05)
[2019-01-17 10:00] VITALS: BP 111/72
[2019-01-17 18:00] VITALS: BP 124/67
--- NOTE | 2019-01-17 18:00 | NUR ---
Problems reprioritized. Patient report given, questions answered & plan of care reviewed with EDMAR GAINES.
[2019-01-17] MEDS: mirtazapine 15mg tablet PO SCH (20:04)
[2019-01-17 22:00] VITALS: BP 170/86
[2019-01-17 22:44] VITALS: BP 137/75
[2019-01-18 06:00] VITALS: BP 125/75
--- NOTE | 2019-01-18 06:17 | NUR ---
Problems reprioritized. Patient report given, questions answered & plan of care reviewed with LIANA Mcmahan.
--- NOTE | 2019-01-18 06:29 | NUR ---
Patient in room ORTHO 4008. I have received report from EDMAR GAINES and had the opportunity to ask questions and assume patient care.
[2019-01-18] MEDS: K and/or MAG REPLACEMENT MC SCH (07:22)
[2019-01-18] MEDS: OLANZapine 2.5MG tablet PO SCH ×2 (07:24→20:13)
[2019-01-18] MEDS: acetaminophen 325mg tablet PO PRN (07:24)
[2019-01-18 10:00] VITALS: BP 138/79
[2019-01-18 18:00] VITALS: BP 136/87
--- NOTE | 2019-01-18 18:00 | NUR ---
Problems reprioritized. Patient report given, questions answered & plan of care reviewed with EDMAR GAINES.
[2019-01-18] MEDS: mirtazapine 15mg tablet PO SCH (20:13)
[2019-01-18 22:00] VITALS: BP 115/71
[2019-01-19 06:00] VITALS: BP 140/92
--- NOTE | 2019-01-19 06:00 | NUR ---
Patient in room ORTHO 4008. I have received report from DEMAR GAINES and had the opportunity to ask questions and assume patient care.
--- NOTE | 2019-01-19 06:08 | NUR ---
Problems reprioritized. Patient report given, questions answered & plan of care reviewed with LIANA Mcmahan. Patient slept well throughout the night. sitter outside door.
[2019-01-19 07:14] LABS: ALANINE AMINOTRANSFERASE 43 U/L (12-78); ALBUMIN 3.8 G/DL (3.4-5.0); ALKALINE PHOSPHATASE 82 IU/L (46-116); ANION GAP 10 (8-16); ASPARTATE AMINO TRANSFERASE 30 U/L (10-37); BILIRUBIN,TOTAL 0.3 MG/DL (0.1-1.0); BLOOD UREA NITROGEN 14 MG/DL (7-18); BUN/CREATININE RATIO 20.3 (6.6-38.0); CALCIUM 9.1 MG/DL (8.5-10.1); CHLORIDE 110 MMOL/L (99-107); CREATININE 0.69 MG/DL (0.40-0.90); GLUCOSE 95 MG/DL (70-104); MAGNESIUM 2.2 MG/DL (1.5-2.4); POTASSIUM 4.1 MMOL/L (3.5-5.1); SODIUM 147 MMOL/L (135-145); TOTAL CARBON DIOXIDE 26.8 MMOL/L (24-32); TOTAL PROTEIN 7.5 G/DL (6.4-8.2); eGFR 82 ML/MIN
[2019-01-19 07:15] LABS: BASOPHILS % (AUTO) 1.4 % (0-1); EOSINOPHILS # (AUTO) 0.2 X10'3 (0-0.9); EOSINOPHILS % (AUTO) 7.1 % (0-6); HEMATOCRIT 38.7 % (35.0-45.0); HEMOGLOBIN 13.2 g/dl (12.0-16.0); LYMPHOCYTES # (AUTO) 1.1 X10'3 (1.1-4.8); LYMPHOCYTES % (AUTO) 43.1 % (21-51); MEAN CORPUSCULAR HEMOGLOBIN 32.9 PG (27.0-31.0); MEAN CORPUSCULAR HGB CONC 34.1 g/dL (33.0-36.5); MEAN CORPUSCULAR VOLUME 96.7 FL (78-98); MEAN PLATELET VOLUME 8.4 FL (7.4-10.4); MONOCYTES # (AUTO) 0.3 X10'3 (0-0.9); MONOCYTES % (AUTO) 11.5 % (2-12); NEUTROPHILS # (AUTO) 0.9 X10'3 (1.8-7.7); NEUTROPHILS % (AUTO) 36.9 % (42-75); PLATELET COUNT 215 X10'3 (140-440); RED CELL DISTRIBUTION WIDTH 14.6 % (11.5-14.5); WHITE BLOOD COUNT 2.6 X10'3 (4.5-11.0)
[2019-01-19] MEDS: OLANZapine 2.5MG tablet PO SCH ×2 (07:22→20:02)
[2019-01-19 07:46] LABS: TOTAL CELLS COUNTED 100
[2019-01-19 07:50] LABS: LARGE PLATELETS FEW; PLATELET ESTIMATE NORMAL
[2019-01-19] MEDS: K and/or MAG REPLACEMENT MC SCH (08:00)
[2019-01-19 10:00] VITALS: BP 102/64
[2019-01-19 18:00] VITALS: BP 106/63
--- NOTE | 2019-01-19 18:00 | NUR ---
Problems reprioritized. Patient report given, questions answered & plan of care reviewed with EDMAR GAINES.
[2019-01-19] MEDS: mirtazapine 15mg tablet PO SCH (20:02)
[2019-01-19] MEDS: terbinafine cream 30gm TP SCH (20:02)
[2019-01-19] MEDS ORDERED: Melatonin 3mg tablet PO SCH (21:00)
[2019-01-19 22:00] VITALS: BP 134/72
[2019-01-20 06:00] VITALS: BP 158/88
--- NOTE | 2019-01-20 06:16 | NUR ---
Problems reprioritized. Patient report given, questions answered & plan of care reviewed with LIANA Molina.
--- NOTE | 2019-01-20 07:30 | NUR ---
Patient visually upset Addendum: 01/20/19 at 1318 by Tracy Saenz RN Amended: Links added.
[2019-01-20] MEDS: terbinafine cream 30gm TP SCH ×2 (08:00→20:53)
[2019-01-20] MEDS: K and/or MAG REPLACEMENT MC SCH (08:24)
[2019-01-20 10:00] VITALS: BP 119/77
--- NOTE | 2019-01-20 11:27 | NUR ---
PAGER ID: [phone] MESSAGE: [id number] Jessica Bangura Patient is requesting a suppository. Tracy [phone]
[2019-01-20] MEDS ORDERED: hyDRALAzine 10mg tablet PO PRN (12:21)
[2019-01-20] MEDS: OLANZapine 2.5MG tablet PO SCH ×2 (14:47→20:51)
[2019-01-20] MEDS: ibuprofen tablet 400 MG TABLET PO PRN (14:47)
--- NOTE | 2019-01-20 16:58 | NUR ---
Daughter and son in room visiting.
--- NOTE | 2019-01-20 17:14 | NUR ---
No agitation noted today in patient, Patient has been pleasant and walking the halls.
--- NOTE | 2019-01-20 18:22 | NUR ---
Problems reprioritized. Patient report given, questions answered & plan of care reviewed with Patricia GAINES.
[2019-01-20 18:30] VITALS: BP 114/70
--- NOTE | 2019-01-20 18:30 | NUR ---
Patient in room ORTHO 4008. I have received report from jeffery Molina and had the opportunity to ask questions and assume patient care.
[2019-01-20] MEDS: mirtazapine 15mg tablet PO SCH (20:50)
[2019-01-20] MEDS: Melatonin 3mg tablet PO SCH (20:51)
[2019-01-20 22:00] VITALS: BP 101/62
[2019-01-21 06:00] VITALS: BP 116/91
--- NOTE | 2019-01-21 06:16 | NUR ---
Problems reprioritized. Patient report given, questions answered & plan of care reviewed with LIANA PATEL.
--- NOTE | 2019-01-21 06:20 | NUR ---
Patient in room ORTHO 4008. I have received report from LIANA Patel and had the opportunity to ask questions and assume patient care.
[2019-01-21] MEDS: OLANZapine 2.5MG tablet PO SCH ×2 (08:04→20:06)
[2019-01-21 10:00] VITALS: BP 94/52
--- NOTE | 2019-01-21 11:15 | NUR ---
reassessment: Pt had large BM per EMR. PO improved to 75-100% meals s/p BM meeting needs. WBC 3.0 not on probiotic. Will continue to monitor. Rec: 1. advance to regular diet per MD; continue lactose free if cultural preferences 2. encourage PO w/ sitter given dementia 3. food from home by daughter for cultural preferences 4. routine bowel care 5. weekly wts Addendum: 01/21/19 at [address] Amended: Links added.
[2019-01-21 18:00] VITALS: BP 143/83
[2019-01-21] MEDS: Melatonin 3mg tablet PO SCH (20:06)
[2019-01-21] MEDS: mirtazapine 15mg tablet PO SCH (20:07)
[2019-01-21] MEDS: terbinafine cream 30gm TP SCH (20:09)
[2019-01-21 22:00] VITALS: BP 124/67
[2019-01-22] MEDS: LORazepam 0.5 MG tablet PO PRN (00:55)
--- NOTE | 2019-01-22 00:59 | NUR ---
pt became agitated and suspicious of everything including sitter. pt started to search something in her room. checking under bed, between sheets, in drawer multiple times. she wrapped some folded papers with cloth and wrapped around waist to keep her safe. she was very scared. she deteremined to stay awake to keep us safe. administered ativan to pt. will monitor.
--- NOTE | 2019-01-22 06:49 | NUR ---
Problems reprioritized. Patient report given, questions answered & plan of care reviewed with LIANA SALGUERO.
[2019-01-22 07:20] VITALS: BP 136/76
[2019-01-22] MEDS: K and/or MAG REPLACEMENT MC SCH ×2 (07:23→08:00)
[2019-01-22] MEDS: terbinafine cream 30gm TP SCH ×2 (08:00→20:24)
[2019-01-22] MEDS: OLANZapine 2.5MG tablet PO SCH ×2 (08:47→20:24)
[2019-01-22 10:06] LABS: BASOPHILS % (AUTO) 1.7 % (0-1); EOSINOPHILS # (AUTO) 0.2 X10'3 (0-0.9); EOSINOPHILS % (AUTO) 10.3 % (0-6); HEMATOCRIT 38.4 % (35.0-45.0); LYMPHOCYTES # (AUTO) 1.1 X10'3 (1.1-4.8); LYMPHOCYTES % (AUTO) 45.4 % (21-51); MEAN CORPUSCULAR HEMOGLOBIN 32.3 PG (27.0-31.0); MEAN CORPUSCULAR HGB CONC 33.7 g/dL (33.0-36.5); MEAN CORPUSCULAR VOLUME 95.8 FL (78-98); MEAN PLATELET VOLUME 8.2 FL (7.4-10.4); MONOCYTES # (AUTO) 0.3 X10'3 (0-0.9); MONOCYTES % (AUTO) 11.2 % (2-12); NEUTROPHILS # (AUTO) 0.8 X10'3 (1.8-7.7); NEUTROPHILS % (AUTO) 31.4 % (42-75); PLATELET COUNT 206 X10'3 (140-440); RED BLOOD COUNT 4.01 X10'6 (4.20-5.60); RED CELL DISTRIBUTION WIDTH 14.4 % (11.5-14.5); WHITE BLOOD COUNT 2.4 X10'3 (4.5-11.0)
[2019-01-22 10:29] VITALS: BP 112/65
[2019-01-22 11:29] LABS: ALANINE AMINOTRANSFERASE 40 U/L (12-78); ALBUMIN 3.7 G/DL (3.4-5.0); ALKALINE PHOSPHATASE 81 IU/L (46-116); ANION GAP 9 (8-16); ASPARTATE AMINO TRANSFERASE 26 U/L (10-37); BILIRUBIN,TOTAL 0.4 MG/DL (0.1-1.0); BLOOD UREA NITROGEN 14 MG/DL (7-18); BUN/CREATININE RATIO 17.5 (6.6-38.0); CHLORIDE 109 MMOL/L (99-107); GLUCOSE 144 MG/DL (70-104); MAGNESIUM 2.1 MG/DL (1.5-2.4); PHOSPHORUS 4.3 MG/DL (2.3-4.5); SODIUM 144 MMOL/L (135-145); TOTAL PROTEIN 7.3 G/DL (6.4-8.2); eGFR 69 ML/MIN
[2019-01-22 13:16] LABS: PLATELET ESTIMATE NORMAL; TOTAL CELLS COUNTED 100
[2019-01-22 18:00] VITALS: BP 133/72
--- NOTE | 2019-01-22 18:44 | NUR ---
Patient in room ORTHO 4008. I have received report from LIANA SALGUERO and had the opportunity to ask questions and assume patient care.
[2019-01-22] MEDS: Melatonin 3mg tablet PO SCH (20:24)
[2019-01-22] MEDS: mirtazapine 15mg tablet PO SCH (20:24)
[2019-01-22 22:00] VITALS: BP 122/67
--- NOTE | 2019-01-23 05:59 | NUR ---
pt has been sleeping since 2199 last night. didn't show any sign of agitation during shift.
--- NOTE | 2019-01-23 06:12 | NUR ---
Problems reprioritized. Patient report given, questions answered & plan of care reviewed with jeffery Fiore.
[2019-01-23 06:45] VITALS: BP 134/78
[2019-01-23] MEDS: K and/or MAG REPLACEMENT MC SCH (07:14)
[2019-01-23] MEDS: OLANZapine 2.5MG tablet PO SCH ×2 (07:14→16:23)
[2019-01-23] MEDS: terbinafine cream 30gm TP SCH ×2 (07:14→20:11)
[2019-01-23 10:08] VITALS: BP 115/77
[2019-01-23 18:00] VITALS: BP 115/69
[2019-01-23] MEDS: mirtazapine 15mg tablet PO SCH (20:08)
[2019-01-23] MEDS: Melatonin 3mg tablet PO SCH (20:08)
[2019-01-23] MEDS: acetaminophen 325mg tablet PO PRN (20:23)
[2019-01-23 22:00] VITALS: BP 116/67
--- NOTE | 2019-01-24 05:57 | NUR ---
Pt sleeping soundly since around 2300. Woke up once at 0100 and at 0400 to walk down the hallway and walked back to her room. She remained pleasant and did not appear agitated throughout.
[2019-01-24 06:00] VITALS: BP 142/77
--- NOTE | 2019-01-24 06:05 | NUR ---
Patient in room ORTHO 4008. I have received report from ARYAN GAINES and had the opportunity to ask questions and assume patient care.
--- NOTE | 2019-01-24 06:10 | NUR ---
Patient in room ORTHO 4008. I have received report from LIANA Feldman and had the opportunity to ask questions and assume patient care.
--- NOTE | 2019-01-24 06:15 | NUR ---
Problems reprioritized. Patient report given, questions answered & plan of care reviewed with Martir GAINES and Kiran GAINES.
[2019-01-24] MEDS: K and/or MAG REPLACEMENT MC SCH (08:00)
[2019-01-24] MEDS: OLANZapine 2.5MG tablet PO SCH ×2 (08:24→16:38)
[2019-01-24] MEDS: terbinafine cream 30gm TP SCH ×2 (08:25→20:00)
[2019-01-24 10:00] VITALS: BP 139/72
[2019-01-24 14:55] VITALS: BP 139/72
--- NOTE | 2019-01-24 17:57 | NUR ---
Student documentation: I have reviewed and agree with all interventions, assessments performed and documented by BRUNO GAINES.
[2019-01-24 18:00] VITALS: BP 138/80
--- NOTE | 2019-01-24 18:05 | NUR ---
Problems reprioritized. Patient report given, questions answered & plan of care reviewed with LIANA Loco.
[2019-01-24] MEDS: Melatonin 3mg tablet PO SCH (21:07)
[2019-01-24] MEDS: mirtazapine 15mg tablet PO SCH (21:07)
[2019-01-24 22:00] VITALS: BP 142/72
--- NOTE | 2019-01-25 06:20 | NUR ---
Patient in room ORTHO 4008. I have received report from Claudy GAINES and had the opportunity to ask questions and assume patient care.
[2019-01-25 06:56] VITALS: BP 139/75
[2019-01-25] MEDS: K and/or MAG REPLACEMENT MC SCH (08:00)
[2019-01-25] MEDS: OLANZapine 2.5MG tablet PO SCH (09:07)
[2019-01-25] MEDS: terbinafine cream 30gm TP SCH (09:07)
[2019-01-25] MEDS ORDERED: MELA3TAB64 PO (09:50)
[2019-01-25] MEDS ORDERED: OLAN2.5T28 PO (09:50)
[2019-01-25] MEDS ORDERED: TERB30CR22 TP (09:50)
[2019-01-25] MEDS ORDERED: MIRT15TA8 PO (09:50)
[2019-01-25 10:00] VITALS: BP 108/69
[2019-01-25 10:11] VITALS: BP 108/69
--- NOTE | 2019-01-25 11:40 | NUR ---
PATIENT DISCHARGED SAFELY WITH CARE PATIENT CENTERED CARE SPECIALIST. ALL BELONGINGS IN POSSESSION. FAMILY MEETING PATIENT PATIENT AT FACILITY.
--- NOTE | 2019-01-25 12:30 | NUR ---
PAGER ID: [phone] MESSAGE: TYLER [phone] RE: TRENA [phone] FLOURNOY IS CALLING REGARDING THE PACKET FROM YESTERDAY.
== END 2019-01-25 12:05 | DRG 690 ==
LOC: ER 02:08 → ORTHO 4S 18:58
PROVIDERS: ADMIT Internal Medicine; ATTEND Family Medicine
PROC: BW251ZZ Computerized Tomography (CT Scan) of Chest, Abdomen and Pelvis using Low Osmolar Contrast (ICD-10-PCS; principal; 2019-01-05)
DX: N39.0 Urinary tract infection, site not specified (principal); F02.81 Dementia in other diseases classified elsewhere, unspecified severity, with behavioral disturbance; J98.11 Atelectasis; G30.9 Alzheimer's disease, unspecified; E87.6 Hypokalemia; F32.9 Major depressive disorder, single episode, unspecified; B35.3 Tinea pedis; R00.1 Bradycardia, unspecified; E73.9 Lactose intolerance, unspecified; F41.1 Generalized anxiety disorder; F42.9 Obsessive-compulsive disorder, unspecified; F43.10 Post-traumatic stress disorder, unspecified; G47.00 Insomnia, unspecified; R03.0 Elevated blood-pressure reading, without diagnosis of hypertension; R19.7 Diarrhea, unspecified
CPT/HCPCS: 36415; 70450; 71045; 71260; 74177; 80053; 81001; 83605; 83735; 84100; 84132; 84145; 84443; 84484; 85025; 85610; 85730; 86885; 86900; 86901; 87040; 87081; 87088; 93005; 96365; 96375; 96376; 99285; G0378; J0696; J1644; J2060; J3475; J3480; J3490; J7030; Q9967

== ENCOUNTER 2019-08-02 17:07 | Emergency (ER) | payer MEDICARE, MEDICAID ==
[~2019-08-02] VITALS: Ht 154.9 cm; Wt 70.0 kg
[~2019-08-02 17:07] MED LIST: MELA3TAB64 PO; MIRT15TA8 PO; OLAN2.5T28 PO; TERB30CR22 TP
[2019-08-02 17:41] VITALS: BP 160/90
[2019-08-02] MEDS ORDERED: haloperidol lactate 5mg/ml inj IM ONE (18:20)
[2019-08-02 18:38] LABS: BASOPHILS % (AUTO) 0.7 % (0-1); EOSINOPHILS # (AUTO) 0.1 X10'3 (0-0.9); EOSINOPHILS % (AUTO) 3.1 % (0-6); HEMATOCRIT 38.6 % (35.0-45.0); HEMOGLOBIN 13.1 g/dl (12.0-16.0); LYMPHOCYTES # (AUTO) 1.1 X10'3 (1.1-4.8); MEAN CORPUSCULAR HEMOGLOBIN 30.9 PG (27.0-31.0); MEAN CORPUSCULAR VOLUME 90.9 FL (78-98); MONOCYTES # (AUTO) 0.6 X10'3 (0-0.9); MONOCYTES % (AUTO) 11.5 % (2-12); NEUTROPHILS % (AUTO) 61.7 % (42-75); PLATELET COUNT 179 X10'3 (140-440); RED BLOOD COUNT 4.24 X10'6 (4.20-5.60); RED CELL DISTRIBUTION WIDTH 15.3 % (11.5-14.5); WHITE BLOOD COUNT 4.8 X10'3 (4.5-11.0)
[2019-08-02 18:57] LABS: ALANINE AMINOTRANSFERASE 30 U/L (12-78); ALBUMIN 3.6 G/DL (3.4-5.0); ALBUMIN/GLOBULIN RATIO 0.9 (1.1-1.5); ALKALINE PHOSPHATASE 75 IU/L (46-116); ANION GAP 8 (8-16); ASPARTATE AMINO TRANSFERASE 35 U/L (10-37); BILIRUBIN,TOTAL 0.3 MG/DL (0.1-1.0); BLOOD UREA NITROGEN 22 MG/DL (7-18); BUN/CREATININE RATIO 25.3 (6.6-38.0); CHLORIDE 108 MMOL/L (99-107); CREATININE 0.87 MG/DL (0.40-0.90); GLUCOSE 182 MG/DL (70-104); POTASSIUM 3.9 MMOL/L (3.5-5.1); SODIUM 142 MMOL/L (135-145); TOTAL PROTEIN 7.5 G/DL (6.4-8.2); eGFR 63 ML/MIN
[2019-08-02 19:04] LABS: VALPROATE 36 UG/ML (50-100)
[2019-08-02 19:48] LABS: CLARITY,URINE CLEAR (Clear); COLOR,URINE YELLOW (Yellow); GLUCOSE, URINE NEGATIVE (Neg); KETONES,URINE NEGATIVE (Neg); LEUKOCYTE ESTERASE ,URINE NEGATIVE (Neg); NITRITES, URINE NEGATIVE (Neg); OCCULT BLOOD,URINE NEGATIVE (Neg); PROTEIN,URINE TRACE mg/dl (Neg); UA COLLECTION TYPE CLN CATCH MIDSTREAM; UROBILINOGEN,URINE 0.2 E.U/dL (0.2-1.0)
[2019-08-02 19:57] LABS: BACTERIA,URINE NONE SEEN /HPF (Neg); HYALINE CASTS 0-3 /LPF (NEGATIVE); MUCUS STRANDS NONE SEEN /LPF (Neg); RBC,URINE 0-2 /HPF (0-2); SQUAMOUS EPITHELIAL CELL,UR FEW /LPF (FEW); WBC,URINE 0-4 /HPF (0-4)
[2019-08-02] MEDS ORDERED: HALO5TAB PO (20:13)
--- NOTE | 2019-08-02 20:31 | NUR ---
CALLED LUPILLO CARGO AT 2030 FOR TRANSPORT TO [facility]. AWAITING PAYMENT VERIFICATION
--- NOTE | 2019-08-02 20:35 | NUR ---
LUPILLO MARISSA CALLED BACK AND SAID THE DAUGHTER IS ON HER WAY BACK.
--- NOTE | 2019-08-02 20:37 | NUR ---
[facility] TO [facility]
[2019-08-02] MEDS ORDERED: quetiapine 100mg tablet PO STA (21:24)
[2019-08-02] MEDS ORDERED: mirtazapine 15mg tablet PO STA (21:27)
[2019-08-02] MEDS ORDERED: Melatonin 3mg tablet PO STA (21:27)
[2019-08-02] MEDS ORDERED: divalproex sodium 250mg tablet PO ONE (21:30)
[2019-08-02] MEDS ORDERED: DIVA500T2 PO (21:33)
[2019-08-04] MEDS ORDERED: MELA10TA2 PO (19:02)
[2019-08-04] MEDS ORDERED: CITA10TA9 PO (19:02)
[2019-08-04] MEDS ORDERED: HALO5TAB PO (19:02)
[2019-08-04] MEDS ORDERED: TRAM50TA2 PO (19:02)
[2019-08-04] MEDS ORDERED: HALOPERIDOL TOP (19:02)
[2019-08-04] MEDS ORDERED: DIVA-76 PO (19:02)
[2019-08-04] MEDS ORDERED: MIRT-92 PO (19:02)
[2019-08-04] MEDS ORDERED: HALO1TAB PO (19:02)
== END 2019-08-02 22:02 | disposition home or self-care (01) ==
LOC: ER 17:07
DX: F03.91 Unspecified dementia, unspecified severity, with behavioral disturbance (principal); F43.10 Post-traumatic stress disorder, unspecified; Z79.899 Other long term (current) drug therapy
CPT/HCPCS: 36415; 80053; 80164; 81001; 85025; 96372; 99284; J1630